=== PATIENT | female | born 1955 | race Caucasian/White ===

== ENCOUNTER 2018-04-13 02:27 | Emergency (ER) | payer OTHER ==
[2018-04-13] MEDS ORDERED: ONDANSETRON 4 MG/2 ML VIAL ONE (03:01)
[2018-04-13] MEDS ORDERED: ONDANSETRON 4 MG/2 ML VIAL IVP ONE (03:10)
[2018-04-13] MEDS ORDERED: NS 1,000 ML IV ONE ×2 (03:11→03:43)
[2018-04-13 03:38] LABS: PLATELET COUNT 278 10^3/uL (150-400)
--- NOTE | 2018-04-13 03:47 | EDPHY ---
H & P Stated Complaint: N,V,D, AFTER EATING SOMETHING Time Seen by Provider: 04/13/18 02:38 HPI/ROS: HPI The patient presents with nausea, vomiting, diarrhea, abdominal discomfort which began at about 5:30 p.m. Last night. Symptoms started slowly and got gradually worse. Vomiting is nonbloody nonbilious. Diarrhea is copious and watery. The patient is also feeling chills throughout her body. She is staying at a house, visiting from out of town for a . Last week many household members had a GI illness. The patient is 1 of 3 family members being seen with identical symptoms, now staying at the house. REVIEW OF SYSTEMS 10 systems were reviewed and negative with the exception of the elements mentioned in the history of present illness. PMHx: Denise's thyroiditis Soc Hx: Visiting from out of town for a PHYSICAL General Appearance: Alert, uncomfortable appearing Eyes: Pupils equal and round no pallor or injection ENT, Mouth: Mucous membranes dry Respiratory: There are no retractions, lungs are clear to auscultation Cardiovascular: Regular rate and rhythm Gastrointestinal: Abdomen is soft and non-tender, no masses, bowel sounds normal Neurological: A&O, moves all extremities Skin: Warm and dry, no rashes Musculoskeletal: Neck is supple non tender Extremities: symmetrical, full range of motion Psychiatric: Patient is oriented X 3, there is no agitation Source: Patient Exam Limitations: No limitations - Personal History Current Tetanus/Diphtheria Vaccine: Yes Current Tetanus Diphtheria and Acellular Pertussis (TDAP): Yes - Medical/Surgical History Hx Asthma: No Hx Chronic Respiratory Disease: No Hx Diabetes: No Hx Cardiac Disease: No Hx Renal Disease: No Hx Cirrhosis: No Hx Alcoholism: No Hx HIV/AIDS: No Hx Splenectomy or Spleen Trauma: No Other PMH: MASSSECTOMY BREATHE CA, THYROID, H - Social History Smoking Status: Never smoked Constitutional: Initial Vital Signs Temperature (C) 37.2 C 04/13/18 02:38 Heart Rate 115 H 04/13/18 02:38 Respiratory Rate 18 04/13/18 02:38 Blood Pressure 148/88 H 04/13/18 02:38 O2 Sat (%) 97 04/13/18 02:38 O2 Delivery Mode Room Air Allergies/Adverse Reactions: PAIN MEDS Allergy (Uncoded 04/13/18 02:40) Home Medications: Medication Instructions Recorded Ondansetron Odt [Zofran Odt 4 mg 4 mg PO Q4 PRN #10 tab 04/13/18 (*)] Thyroid,Pork [[place] Thyroid] 30 mg PO 04/13/18 Medical Decision Making Differential Diagnosis: 62-year-old female presents with several hours of nausea, vomiting, diarrhea. In the emergency department, patient was given IV fluids and Zofran with improvement in her symptoms. She was able to tolerate p.o.. Labs were checked and were unremarkable. Differential diagnosis includes viral gastroenteritis, toxin mediated enterocolitis, less likely diverticulitis. - Data Points Laboratory Results: Laboratory Results 04/13/18 03:15 04/13/18 03:15 04/13/18 04/13/18 03:15 03:15 WBC 9.85 10^3/uL H 10^3/uL (3.80-9.50) RBC 4.55 10^6/uL 10^6/uL (4.18-5.33) Hgb 13.4 g/dL g/dL (12.6-16.3) Hct 38.8 % % (38.0-47.0) MCV 85.3 fL fL (81.5-99.8) MCH 29.5 pg pg (27.9-34.1) MCHC 34.5 g/dL g/dL (32.4-36.7) RDW 13.0 % % (11.5-15.2) Plt Count 278 10^3/uL 10^3/uL (150-400) MPV 11.0 fL fL (8.7-11.7) Neut % (Auto) 80.4 % H % (39.3-74.2) Lymph % (Auto) 14.2 % L % (15.0-45.0) [place] % (Auto) 4.7 % % (4.5-13.0) Eos % (Auto) 0.2 % L % (0.6-7.6) Baso % (Auto) 0.3 % % (0.3-1.7) Nucleat RBC Rel Count 0.0 % % (0.0-0.2) Absolute Neuts (auto) 7.92 10^3/uL H 10^3/uL (1.70-6.50) Absolute Lymphs (auto) 1.40 10^3/uL 10^3/uL (1.00-3.00) Absolute Monos (auto) 0.46 10^3/uL 10^3/uL (0.30-0.80) Absolute Eos (auto) 0.02 10^3/uL L 10^3/uL (0.03-0.40) Absolute Basos (auto) 0.03 10^3/uL 10^3/uL (0.02-0.10) Absolute Nucleated RBC 0.00 10^3/uL 10^3/uL (0-0.01) Immature Gran % 0.2 % % (0.0-1.1) Immature Gran # 0.02 10^3/uL 10^3/uL (0.00-0.10) Sodium 136 mEq/L mEq/L (135-145) Potassium 4.2 mEq/L mEq/L (3.3-5.0) Chloride 100 mEq/L mEq/L (97-110) Carbon Dioxide 22 mEq/l mEq/l (22-31) Anion Gap 14 mEq/L mEq/L (8-16) BUN 14 mg/dL mg/dL (7-23) Creatinine 0.5 mg/dL L mg/dL (0.6-1.0) Estimated GFR > 60 Glucose 128 mg/dL H mg/dL (70-100) Calcium 9.3 mg/dL mg/dL (8.5-10.4) Medications Given: Discontinued Medications Sodium Chloride (Ns) 1,000 mls @ 0 mls/hr IV ONCE ONE; Wide Open PRN Reason: Protocol Stop: 04/13/18 03:12 Last Admin: 04/13/18 03:12 Dose: 1,000 mls Sodium Chloride (Ns) 1,000 mls @ 0 mls/hr IV ONCE ONE; Wide Open PRN Reason: Protocol Stop: 04/13/18 03:44 Last Admin: 04/13/18 03:52 Dose: 1,000 mls Ondansetron HCl (Zofran) 4 mg IVP EDNOW ONE Stop: 04/13/18 03:11 Last Admin: 04/13/18 03:12 Dose: 4 mg Ondansetron HCl (Zofran Odt 4 Mg Prepack#2) 1 btl TAKERORY LLANESNOW ONE Stop: 04/13/18 04:10 Last Admin: 04/13/18 04:42 Dose: 1 btl Departure - Departure Disposition: Home, Routine, Self-Care Clinical Impression: Nausea vomiting and diarrhea Condition: Good Instructions: Loperamide (By mouth), Acute Nausea and Vomiting (ED), Acute Diarrhea (ED) Additional Instructions: I recommend that you take clear fluids until your feeling better. You can use the Zofran as needed for nausea and vomiting. You can take Imodium which is available [id number] for your diarrhea. Referrals: Jose Anderson MD [[facility] [place] Primary Care Provider] - As per Instructions Prescriptions: Ondansetron Odt [Zofran Odt 4 mg (*)] 4 mg PO Q4 PRN #10 tab PRN Reason: Nausea/Vomiting, Can'T Take Po
[2018-04-13] MEDS ORDERED: ONDANSETRON 4MG PREPACK#2 BTL TAKEHOME ONE (04:09)
[2018-04-13 04:43] VITALS: BP 138/80
== END 2018-04-13 04:56 | disposition home or self-care (01) ==
DX: R11.2 Nausea with vomiting, unspecified (principal); R19.7 Diarrhea, unspecified; E86.9 Volume depletion, unspecified
CPT/HCPCS: 96374; J2405